=== PATIENT | female | born 1975 | race African-American/Black ===

== ENCOUNTER 2021-10-02 12:28 | Emergency (ER) | payer BC, OTHER ==
[~2021-10-02] VITALS: Ht 152.4 cm; Wt 75.0 kg
[~2021-10-02 12:28] MED LIST: ESCI20TA87 PO; FOLI-130 PO; FURO20 PO; OMEP20 PO; POTA-206 PO; THIA100T78 PO
[2021-10-02] MEDS ORDERED: PROPARACAINE HCL 0.5% 15 ML OPHTHALMIC SOLUTION OU ONE (14:30)
[2021-10-02] MEDS ORDERED: FLUORESCEIN SODIUM 1 MG STRIP OU ONE (14:30)
[2021-10-02] MEDS ORDERED: HYDROCODONE/ACETAMINOPHEN 5-325 MG TABLET PO ONE (15:45)
[2021-10-02] MEDS ORDERED: ERYTHROMYCIN 0.5% 3.5 GM TUBE OPHTHALMIC OINTMENT OS ONE (15:45)
[2021-10-02 16:58] LABS: COVID AG,FIA SOURCE NASAL SWAB
[2021-10-02 17:09] VITALS: BP 112/73
== END 2021-10-02 19:12 | disposition short-term general hospital (02) ==
LOC: EMS 12:28
DX: H16.002 Unspecified corneal ulcer, left eye (principal); H54.62 Unqualified visual loss, left eye, normal vision right eye; F17.210 Nicotine dependence, cigarettes, uncomplicated; F12.90 Cannabis use, unspecified, uncomplicated; Z20.822 Contact with and (suspected) exposure to COVID-19; Z87.19 Personal history of other diseases of the digestive system
CPT/HCPCS: 99285; Z7502; Z7610

== ENCOUNTER 2023-03-06 01:42 | Emergency (ER) | payer MEDICARE, OTHER ==
[~2023-03-06] VITALS: Ht 152.4 cm; Wt 72.7 kg
[2023-03-06 01:50] VITALS: TEMP 98.7
[2023-03-06 02:23] LABS: BASOPHILS % (AUTO) 1.1 % (0.0-2.0); EOSINOPHILS % (AUTO) 2.2 % (1.0-6.0); HEMATOCRIT 38.7 % (36-46); HEMOGLOBIN 12.5 g/dL (12.0-16.0); LYMPHOCYTES # (AUTO) 2.3 K/uL (1.0-4.8); LYMPHOCYTES % (AUTO) 24.7 % (22.0-44.0); MEAN CORPUSCULAR HEMOGLOBIN 29.2 pg (26.0-34.0); MEAN CORPUSCULAR HGB CONC 32.4 G/dL (31.0-37.0); MEAN CORPUSCULAR VOLUME 90 fL (80-100); MONOCYTES # (AUTO) 0.6 K/uL (0.1-1.0); MONOCYTES % (AUTO) 6.5 % (2.0-9.0); NEUTROPHILS # (AUTO) 6.1 K/uL (1.8-7.7); NEUTROPHILS % (AUTO) 65.5 % (40.0-70.0); PLATELET COUNT (AUTO) 325 K/uL (150-450); RED CELL DISTRIBUTION WIDTH 15.5 % (11.5-14.5); WHITE BLOOD COUNT (AUTO) 9.4 K/uL (4.5-11.0)
[2023-03-06 02:33] LABS: ANION GAP 9 mmol/L (8-16); CALCIUM, TOTAL 9.4 mg/dL (8.8-10.5); CARBON DIOXIDE 29 mmol/L (22-29); CHLORIDE 100 mmol/L (98-107); CREATININE 0.85 mg/dL (0.60-1.30); GLOMERULAR FILTR. RATE CALC > 60 mL/min (>60); GLUCOSE,RANDOM 103 mg/dL (70-110); POTASSIUM 3.6 mmol/L (3.5-5.1); SODIUM SERUM 138 mmol/L (136-145); UREA NITROGEN, BLOOD 14 mg/dL (7-18)
[2023-03-06 02:44] LABS: ALANINE AMINOTRANSFERASE 18 U/L (12-78); ALKALINE PHOSPHATASE 137 U/L (46-116); AMYLASE 35 U/L (25-115); ASPARTATE AMINOTRANSFERASE 17 U/L (15-37); BILIRUBIN,TOTAL 0.2 mg/dL (0.1-1.0); HCG,QUANTITATIVE 3 mIU/mL (0-6); LIPASE 26 U/L (16-77); TOTAL PROTEIN, SERUM 7.9 g/dL (6.4-8.2)
[2023-03-06 03:14] LABS: TROPONIN I-HIGH SENSITIVITY 4 ng/L (<51)
[2023-03-06] MEDS ORDERED: OMEPRAZOLE 20 MG CAPSULE PO ONE (04:30)
[2023-03-06] MEDS ORDERED: ACETAMINOPHEN 500 MG TABLET PO ONE (04:30)
[2023-03-06] MEDS ORDERED: MAG HYDROX/ALUMINUM HYD/SIMETH ES 30 ML SUSPENSION UDCUP PO ONE (04:30)
[2023-03-06] MEDS ORDERED: ONDANSETRON HCL 4 MG TABLET PO ONE (04:30)
[2023-03-06] MEDS ORDERED: ARIP15TA27 PO (04:46)
[2023-03-06] MEDS ORDERED: ALPR-707 PO (04:46)
[2023-03-06] MEDS ORDERED: ESCI-8 PO (04:46)
[2023-03-06 04:49] VITALS: BP 146/69; PULSE 99; RESP 19
== END 2023-03-06 04:59 | disposition home or self-care (01) ==
LOC: EMS 01:45
DX: K29.70 Gastritis, unspecified, without bleeding (principal); F10.10 Alcohol abuse, uncomplicated; F31.9 Bipolar disorder, unspecified; F17.210 Nicotine dependence, cigarettes, uncomplicated; F12.90 Cannabis use, unspecified, uncomplicated
CPT/HCPCS: 99285; 71045; 80053; 82150; 83690; 84484; 84702; 85025; 36415; 93005; G0480; Q0162